=== PATIENT | female | born 1990 | race Caucasian/White ===

== ENCOUNTER 2017-06-10 09:01 | Emergency (ER) | payer MEDICAID ==
[~2017-06-10] VITALS: Ht 167.6 cm; Wt 65.0 kg
[2017-06-10 09:22] VITALS: BP 103/72
[2017-06-10] MEDS ORDERED: AMOX875T2 PO (09:39)
== END 2017-06-10 09:52 | disposition home or self-care (01) ==
LOC: ER 09:02
DX: K08.89 Other specified disorders of teeth and supporting structures (principal); F15.90 Other stimulant use, unspecified, uncomplicated; Z56.0 Unemployment, unspecified; Z79.2 Long term (current) use of antibiotics
CPT/HCPCS: 99283